=== PATIENT | female | born 1945 | race Caucasian/White ===

== ENCOUNTER 2023-11-14 03:25 | Inpatient (IN) | payer OTHER, SELFPAY ==
[2023-11-14] VITALS (14 sets, daily range): BP systolic 114–168; BP diastolic 62–109; PULSE 65–88; RESP 16–20; TEMP 36–37.6; O2SAT 88–100; BMI 31.3; BMI 31.5
--- NOTE | 2023-11-14 | ECG_ITS ---
Test Reason : ELEVATED TRIPONIN Blood Pressure : / mmHG Vent. Rate : 067 BPM Atrial Rate : 000 BPM P-R Int : 000 ms QRS Dur : 152 ms QT Int : 528 ms P-R-T Axes : 000 -31 149 degrees QTc Int : 557 ms V-paced rhythm Anterolateral T wave inversions Prolonged QTc Abnormal ECG When compared with ECG of 14-NOV-2023 03:43, Anterolateral T wave inversions Prolonged QTc Referred By: Oren Cormier Electronically Signed By:Bk Clarke
--- NOTE | ~2023-11-14 | XR_ITS ---
EXAMINATION: XR CHEST CLINICAL INFORMATION: Shortness of breath. Concern for pulmonary edema. COMPARISON: None available. TECHNIQUE: Frontal view of the chest was obtained. FINDINGS: The cardiomediastinal silhouette is within normal limits. Pacer leads are in place. There is bronchial thickening. There is no focal lung consolidation or pleural effusion. The bony structures and soft tissues are unremarkable. XR/XR chest 1V IMPRESSION: Bronchial thickening may be seen with bronchitis. There is no evidence for pulmonary edema. No focal consolidation or pleural effusion.
--- NOTE | 2023-11-14 03:34 | ECG_ITS ---
Test Reason : CP Blood Pressure : / mmHG Vent. Rate : 089 BPM Atrial Rate : 087 BPM P-R Int : 000 ms QRS Dur : 146 ms QT Int : 390 ms P-R-T Axes : 000 -36 134 degrees QTc Int : 474 ms V-paced rhythm with PVCs Unclear background rhythm Left axis deviation Left bundle branch block Abnormal ECG No previous ECGs available Referred By: Kari Sanabria Electronically Signed By:Bk Clarke
[2023-11-14 04:12] LABS: Venous Blood Gas Refer to POC result
[2023-11-14 04:13] LABS: Basophils Percent Auto 0.3 % (0-2); Eosinophils Percent Auto 0.3 % (0-4); Hematocrit 36.3 % (37.0-47.0); Hemoglobin 12.4 g/dl (12.0-16.0); Lymphocytes Absolute Auto 0.4 X10*3/uL (1.2-4.9); Lymphocytes Percent Auto 11.3 % (20-40); MANUAL DIFF FLAG NO; Mean Corpuscular HGB Conc 34.2 g/dl (31.0-35.0); Mean Corpuscular Hemoglobin 31.7 pg (27.0-33.0); Mean Corpuscular Volume 92.8 fL (80.0-98.0); Mean Platelet Volume 10.9 fL (9.4-12.3); Monocytes Absolute Auto 0.5 X10*3/uL (0.1-1.2); Monocytes Percent Auto 16.9 % (2-11); Neutrophils Absolute Auto 2.3 x10*3/uL (2.0-8.3); Neutrophils Percent Auto 71.2 % (45-73); Red Blood Count 3.91 X10*6/uL (4.20-5.50); Red Cell Distribution Width 14.7 % (11.0-16.0); White Blood Count 3.2 X10*3/uL (4.8-10.8)
[2023-11-14 04:15] LABS: VBG Base Excess 5.5 mmol/L; VBG HCO3 29 mmol/L (22-26); VBG pCO2 39 mmHg; VBG pH 7.47 (7.32-7.43); VBG pO2 66 mmHg
[2023-11-14 04:18] LABS: Platelet Count 39 X10*3/uL (160-400)
[2023-11-14 04:19] LABS: INTERNATIONAL NORM RATIO 1.6 (0.9-1.1); Prothrombin Time 19.1 SEC (11.1-13.3)
[2023-11-14 04:22] LABS: IDNOW Serial# 08D9AD1C; Influenza A Positive (Negative)
[2023-11-14 04:26] LABS: COVID-19 Test Negative (Negative); IDNOW Serial# 152EDE1D; Influenza B2 Negative (Negative)
[2023-11-14 04:29] LABS: Alanine Aminotransferase 18 U/L (0-31); Alkaline Phosphatase 73 U/L (39-117); Anion Gap 17 (12-20); Aspartate Amino Transferase 37 U/L (5-31); Bilirubin Total 1.4 mg/dL (0.0-1.0); Blood Urea Nitrogen 13 mg/dL (9-16); Carbon Dioxide 28 mmol/L (22-29); Chloride 95 mmol/L (96-108); Creatinine Clr Calc Pharmacy 40.4; Estimated Glomerular Filt Rate 45; Glucose Random 226 mg/dL (60-115); Potassium 3.6 mmol/L (3.3-5.1); Sodium 136 mmol/L (135-145); Total Protein 7.4 g/dL (6.5-8.0)
[2023-11-14 04:32] LABS: B Type Natriuretic Peptide 1448 pg/mL (<100); Troponin-I High Sensitivity 32.2 ng/L (<3.5-17.0)
--- NOTE | 2023-11-14 05:28 | PM.IMHP ---
History of Present Illness Date of Service: 11/14/23 Chief Complaint: Dyspnea This is a 78-year-old female with pertinent history of congestive heart failure, unspecified EF, hypothyroidism, essential hypertension, mood disorder, gastroesophageal reflux disease who presents to the emergency department for evaluation of dyspnea. Patient states that her symptoms started 1 day prior to presentation. Has been having dyspnea at rest. Admits orthopnea. Patient does have a history of CHF and states she is compliant with Lasix. Does have chills and dry cough. No fevers, chest discomfort, palpitations, abdominal pain, changes in urinary or bowel habits. No sick contacts. In the emergency department, patient tested positive for influenza A and BNP found to be elevated Review of Systems Constitutional: Constitutional: Reports lethargy and Reports poor appetite Cardiovascular: Cardiovascular: Reports dyspnea and Reports orthopnea Respiratory: Respiratory: Reports cough and Reports dyspnea Gastrointestinal: Gastrointestinal: Reports no additional gastrointestinal complaints Genitourinary: Genitourinary: Reports no additional female genitourinary complaints [facility] Medical History Hypothyroidism Gastroesophageal reflux disease Essential hypertension Mood disorder Congestive heart failure Pertinent family history: Not significant due to age Social History Smoked in Last 30 Days: No Use of substances other than those prescribed or required for medical reasons: No Advance Directives: No Advance Directives Information Provided: Yes Meds Allergies Allergy/AdvReac Type Severity Reaction Status Date / Time Unable to Assess Allergy Verified 11/14/23 03:34 Physical Exam Vital Signs and Narrative: Vital Signs: Last Vital Signs Temp 99.7 F 11/14/23 03:54 Pulse 88 11/14/23 03:54 Resp 20 11/14/23 03:54 BP 162/109 H 11/14/23 03:54 Pulse Ox 95 11/14/23 03:54 O2 Del Method Room Air 11/14/23 03:54 BMI result Body Mass Index 31.3 Elderly female lying in bed in mild distress Neck supple, + JVD Regular rate and rhythm, S1-S2 heard Bilateral crackles Abdomen soft nontender, no guarding, no rigidity Patient is awake, alert and oriented to self, place, time and person ; no focal motor deficit Psych: Normal mood Bilateral pedal edema Results Labs 11/14/23 04:04 11/14/23 04:04 Labs: Laboratory Results - last 24 hr 11/14/23 11/14/23 04:04 04:08 MCV 92.8 MCH 31.7 MCHC 34.2 RDW 14.7 Plt Count 39 L MPV 10.9 Immature Gran % (Auto) 0.0 Neut % (Auto) 71.2 Lymph % (Auto) 11.3 L [place] % (Auto) 16.9 H Eos % (Auto) 0.3 Baso % (Auto) 0.3 Lymph # (Auto) 0.4 L [place] # (Auto) 0.5 Eos # (Auto) 0.0 Baso # (Auto) 0.0 Abs Immat Gran (auto) 0.00 Absolute Neuts (auto) 2.3 Absolute Nucleated RBC 0.000 Nucleated RBC % (auto) 0.0 PT 19.1 H INR 1.6 H VBG pH 7.47 H VBG pCO2 39 VBG pO2 66 VBG HCO3 29 H VBG O2 Saturation 93.0 VBG Base Excess 5.5 Anion Gap 17 Estim Creat Clear Calc 40.4 Estimated GFR 45 Random Glucose 226 H Calcium 9.0 Total Bilirubin 1.4 H AST 37 H ALT 18 Alkaline Phosphatase 73 B-Natriuretic Peptide 1448 H Total Protein 7.4 Albumin 4.0 COVID-19 (YASMEEN) Negative COVID-19 Clin Com See Note Influenza Type A (FREDA) Positive A Influenza Type B (FREDA) Negative Influenza A & B Note See Note Assessment and Plan (1) Acute congestive heart failure: Status: Acute Plan This is a 78-year-old female with pertinent history of congestive heart failure, unspecified EF, hypothyroidism, essential hypertension, mood disorder, gastroesophageal reflux disease who presents to the emergency department for evaluation of dyspnea. #. Acute respiratory distress due to acute on chronic congestive heart failure in the setting of influenza a: Will admit patient and initiate IV diuresis. Strict I's and O's. Low-salt diet. Obtaining echocardiogram. Initiating Tamiflu, renally dosed #. Hyperglycemia: Initiating Accu-Cheks with sliding scale insulin. Obtaining A1c #. Essential hypertension: Continue home antihypertensives #. Mood disorder: Continue mood stabilizers #. Hypothyroidism: On Synthroid #. Elevated troponin, likely in the setting of increased amount: Trend #. Gastroesophageal reflux disease: On PPI Med rec pending DVT prophylaxis: Magdalenax Full code. Discussed with daughter at bedside Admit as inpatient and will require two night minimum hospital stay for close monitoring of hemodynamics, respiratory status, volume status with IV diuresis (as above), which is not possible in a lesser acute setting. Quality Stroke Does the patient have a stroke diagnosis?: No VTE Prior VTE?: No VTE Risk Level:: Medical - moderate - high VTE Device Contraindication: Treatment Not Indicated VTE Drug Contraindication: N/A - Med Ordered
--- NOTE | 2023-11-14 05:42 | ED_ITS ---
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 Majority of the history is provided by the daughter who is at bedside. Related Data Home Medications Medication Instructions Recorded Confirmed clonidine HCl 0.1 mg tablet 0.1 mg PO BID 11/14/23 doxazosin 4 mg tablet 4 mg PO DAILY 11/14/23 furosemide 20 mg tablet mg PO 11/14/23 levothyroxine 112 mcg tablet 112 mcg PO DAILY 11/14/23 metoprolol tartrate 100 mg tablet 100 mg PO BID 11/14/23 [id number]-tucegnqes-wwrbnvei 3.5 drp ophthalmic (eye) 11/14/23 mg/mL-10,000 unit/mL-0.1% eye drops olmesartan 40 mg tablet 40 mg PO DAILY 11/14/23 pantoprazole 20 mg tablet,delayed 20 mg PO DAILY 11/14/23 release trazodone 50 mg tablet 50 mg PO BEDTIME 11/14/23 11/14/23 Allergies Allergy/AdvReac Type Severity Reaction Status Date / Time amlodipine [From Norvasc] Allergy Swelling Verified 11/14/23 06:25 enoxaparin [From Lovenox] Allergy Rash Verified 11/14/23 06:25 lisinopril Allergy Rash Verified 11/14/23 06:25 Penicillins Allergy Rash Verified 11/14/23 06:25 albuterol AdvReac SVT Verified 11/14/23 06:31 Review of Systems 2 Review of Systems: Pertinent positives and negatives as stated in HPI PMFSH Past Medical History Source: nursing notes reviewed Medical History Hypothyroidism Gastroesophageal reflux disease Essential hypertension Mood disorder Congestive heart failure Social History Social History Smoked in Last 30 Days: No Use of substances other than those prescribed or required for medical reasons: No Advance Directives: No Advance Directives Information Provided: Yes Physical Exam 2 Vital Signs: Vital Signs: Last Vital Signs Temp 98.9 F 11/14/23 07:13 Pulse 73 11/14/23 07:13 Resp 16 11/14/23 07:13 BP 155/91 H 11/14/23 07:13 Pulse Ox 90 L 11/14/23 07:13 O2 Del Method Room Air 11/14/23 07:13 BMI result Body Mass Index 31.3 VITAL SIGNS: Reviewed. GENERAL: Well developed, well nourished, in no acute distress. HEAD: Normocephalic/atraumatic EYES: PERRLA, EOMI EARS: Ext canals without abnormality NOSE: Nares patent bilateral OROPHARYNX: no oral lesions noted, posterior pharynx clear NECK: Supple, no adenopathy LUNGS: Decreased breath sounds throughout, bibasilar rales, tachypnea is present. SpO2<90> CARDIOVASCULAR: Regular rate and rhythm without noted murmurs, no JVD but 1+ lower extremity edema ABDOMEN: Soft, non-tender, non-distended with bowel sounds. MUSCULOSKELETAL: No tenderness, deformities, or effusions noted on gross inspection. EXTREMITIES: No cyanosis, clubbing or edema. SKIN: Inspection of the skin reveals no rashes NEUROLOGIC: Alert and oriented x 3. Strength and sensation to light touch were grossly intact x 4. Medications Administered Discontinued Medications Generic Name Dose Route Start Last Admin Trade Name Freq PRN Reason Stop Dose Admin Enoxaparin Sodium 40 mg 11/14/23 05:30 11/14/23 06:18 Enoxaparin Sodium 40 Mg/0.4 Ml Syringe SUBCUT 40 mg Q24H VERNA Administration Furosemide 60 mg 11/14/23 04:48 11/14/23 06:18 Furosemide 100 Mg/10 Ml Vial IVPUSH 11/14/23 04:49 60 mg ONCE ONE Administration Protocol Oseltamivir Phosphate 75 mg 11/14/23 05:32 11/14/23 06:18 Oseltamivir Phosphate 75 Mg Capsule PO 11/14/23 05:33 75 mg ONCE ONE Administration Medical Decision Making Medical Decision Making MDM Narrative: 78-year-old female with history and clinical presentation, DDX: Acute on chronic heart failure, viral syndrome Records were requested from [facility]. I reviewed all investigations and there is a slight leukopenia without anemia and a stable thrombocytopenia (according to the daughter) and no left shift. Coagulation studies are elevated and this is likely secondary to daughter's reported liver disease. VBG does not represent a respiratory acidosis and there is no hypercapnia. Chemistry disease do not demonstrate an NYASIA and there is no electrolyte derangement however there is an elevated total bilirubin without abdominal discomfort and suspect that this is part of patient's chronic liver disease. Troponin is noted be elevated at 32.2 without complaints of chest pain or palpitations. In addition, BNP is noted to be elevated at 1448 and patient received 60 mg of Lasix. Viral testing is positive for influenza A. Chest x- ray is significant for bronchial thickening likely consistent with underlying diagnosis of influenza A. EKG demonstrates atrial fibrillation and left bundle- branch block, there is no comparison EKG but patient has no complaints of chest pain. I discussed case with inpatient hospitalist who accepts admission. Differential Diagnosis Differential Diagnoses: The differential diagnosis associated with the presentation includes Please see the discussion above Admission/Observation Consideration of admission/observation: Escalation of care including admission/observation considered Please see the discussion above Consult Healthcare Provider Management of the patient was discussed with: Hospitalist Please his custom Lab Data MDM Lab Attestation statement: I reviewed the patient's lab results. Please see the discussion above 11/14/23 04:04 11/14/23 04:04 Labs: Lab Results 11/14/23 11/14/23 Range/Units 04:04 04:08 WBC 3.2 L (4.8-10.8) X10*3/uL RBC 3.91 L (4.20-5.50) X10*6/uL Hgb 12.4 (12.0-16.0) g/dl Hct 36.3 L (37.0-47.0) % MCV 92.8 (80.0-98.0) fL MCH 31.7 (27.0-33.0) pg MCHC 34.2 (31.0-35.0) g/dl RDW 14.7 (11.0-16.0) % Plt Count 39 L (160-400) X10*3/uL MPV 10.9 (9.4-12.3) fL Immature Gran % (Auto) 0.0 (0.0-0.4) % Neut % (Auto) 71.2 (45-73) % Lymph % (Auto) 11.3 L (20-40) % [place] % (Auto) 16.9 H (2-11) % Eos % (Auto) 0.3 (0-4) % Baso % (Auto) 0.3 (0-2) % Lymph # (Auto) 0.4 L (1.2-4.9) X10*3/uL [place] # (Auto) 0.5 (0.1-1.2) X10*3/uL Eos # (Auto) 0.0 (0.0-0.4) X10*3/uL Baso # (Auto) 0.0 (0.0-0.2) X10*3/uL Abs Immat Gran (auto) 0.00 (0.00-0.03) X10*3/uL Absolute Neuts (auto) 2.3 (2.0-8.3) x10*3/uL Absolute Nucleated RBC 0.000 (0.0-0.012) X10*3/uL Nucleated RBC % (auto) 0.0 (0.0-0.2) /100WBC PT 19.1 H (11.1-13.3) SEC INR 1.6 H (0.9-1.1) VBG pH 7.47 H (7.32-7.43) VBG pCO2 39 mmHg VBG pO2 66 mmHg VBG HCO3 29 H (22-26) mmol/L VBG O2 Saturation 93.0 % VBG Base Excess 5.5 mmol/L Sodium 136 (135-145) mmol/L Potassium 3.6 (3.3-5.1) mmol/L Chloride 95 L (96-108) mmol/L Carbon Dioxide 28 (22-29) mmol/L Anion Gap 17 (12-20) BUN 13 (9-16) mg/dL Creatinine 1.17 (0.5-1.4) mg/dL Estim Creat Clear Calc 40.4 Estimated GFR 45 Random Glucose 226 H (60-115) mg/dL Estimat Average Glucose 131 mg/dL Hemoglobin A1c % 6.2 H (<6.0) % Calcium 9.0 (8.4-10.2) mg/dL Total Bilirubin 1.4 H (0.0-1.0) mg/dL AST 37 H (5-31) U/L ALT 18 (0-31) U/L Alkaline Phosphatase 73 (39-117) U/L Troponin I High Sens 32.2 H (<3.5-17.0) ng/L B-Natriuretic Peptide 1448 H (<100) pg/mL Total Protein 7.4 (6.5-8.0) g/dL Albumin 4.0 (3.5-5.0) g/dL COVID-19 (YASMEEN) Negative (Negative) COVID-19 Clin Com See Note Influenza Type A (FREDA) Positive A (Negative) Influenza Type B (FREDA) Negative (Negative) Influenza A & B Note See Note Independent Interpretation I performed an independent interpretation of an: EKG Interpretation: Atrial fibrillation, HR-89, LBBB, no STEMI Radiology Impression Discussion of test interpretation with radiology: I have reviewed the radiologist's reading. Radiologist Impression: Please see the discussion above Chronic Conditions Patient?s care impacted by: Hypertension and Other CHF, liver disease, thrombocytopenia Critical Care Time Critical Care Time Critical Care Time: Yes Total Critical Care Time: 60 Attestation: I personally attest to this time spent taking care of the patient. Discharge Plan Discharge Clinical Impression: Acute on chronic congestive heart failure, Viral syndrome, Influenza A, Thrombocytopenia Patient Disposition: Admitted As Inpatient
[2023-11-14 05:59] LABS: Estimated Average Glucose 131 mg/dL; Hemoglobin A1c % 6.2 % (<6.0)
[2023-11-14] MEDS: Furosemide 100 MG/10 ML VIAL 60 MG IVPUSH (06:18)
[2023-11-14] MEDS: Enoxaparin Sodium 40 MG/0.4 ML SYRINGE SUBCUT (06:18)
[2023-11-14] MEDS: Oseltamivir Phosphate 75 MG CAPSULE PO (06:18)
--- NOTE | 2023-11-14 07:00 | CA_ITS ---
Transthoracic Echocardiogram Patient (Last, First, Middle): Cary Mireles, Gender: Female Date of : 1945 Age: 78 Procedure Date: 11/14/2023 Procedure Type: Transthoracic Echocardiogram Location: [facility] [place] Height: 160.02 cm Weight: 79.83 kg BSA: 1.83 m2 Heart Rate: bpm BP: 155 / 91 mmHg [employer] Web Application Developer: Referring MD: Diana King MD Symptoms: CHF Study Quality: Adequate ECG Rhythm: Ventriculary paced rhythm Conclusions: - Normal left ventricular cavity size. There is normal left ventricular wall thickness. The left ventricular systolic function is moderately decreased. The visually estimated ejection fraction is between 30-35%. - There is paradoxical septal motion consistent with a right ventricular pacemaker. - There is normal right ventricular systolic function. There is a pacemaker wire seen in the right ventricle. RV is mild-to moderately dilated. - The left atrium is severely dilated. - There is severe calcification of the aortic valve. There is moderate aortic valve stenosis. The peak aortic velocity is 2.61 m/s. The mean gradient is 15 mmHg. The aortic valve area is 1.03 cm2. There is mild aortic valve regurgitation. SVI 35. - There is mild to moderate mitral valve regurgitation. - There is severe tricuspid valve regurgitation. The right ventricular systolic pressure is 48 mmHg. Moderately elevated right atrial pressure. Moderate pulmonary hypertension is present. - There is mild dilatation of the ascending aorta measuring 4.50 cm. Findings Left Ventricle Normal left ventricular cavity size. There is normal left ventricular wall thickness. The left ventricular systolic function is moderately decreased. The visually estimated ejection fraction is between 30-35%. There is moderate global hypokinesis. There is paradoxical septal motion consistent with a right ventricular pacemaker. Diastolic function is indeterminate on the basis of available data. Right Ventricle There is normal right ventricular systolic function. There is a pacemaker wire seen in the right ventricle. RV is [id number] dilated. Atria The left atrium is severely dilated. Aortic Valve There is severe calcification of the aortic valve. There is moderate aortic valve stenosis. The peak aortic velocity is 2.61 m/s. The mean gradient is 15 mmHg. The aortic valve area is 1.03 cm2. There is mild aortic valve regurgitation. SVI 35. Mitral Valve There is moderate mitral annular calcification. There is mild to moderate mitral valve regurgitation. There is no mitral valve stenosis. Pulmonic Valve The pulmonic valve is likely normal. Tricuspid Valve There is severe tricuspid valve regurgitation. The right ventricular systolic pressure is 48 mmHg. Moderately elevated right atrial pressure. Moderate pulmonary hypertension is present. Great Vessels There is mild dilatation of the ascending aorta measuring 4.50 cm. The visualized portions of the pulmonary artery and branches are normal. Venous The inferior vena cava is dilated and collapses less than 50% with inspiration. Pericardium/Pleural There is no evidence of pericardial effusion. Prior Study Comparison No prior study available for comparison. Measurements 2D Linear Measurements IVSd: 0.98 0.6-0.9/0.6-1.0 cm LVIDd: 5.26 3.9-5.3/4.2-5.9 cm LVIDd Index: 2.87 2.4-3.2/2.2-3.1 cm/m2 LVIDs: 3.97 2.0-3.6 cm LVPWd: 1.05 0.7-1.1 cm Ao Root: 3.30 2.1-3.5 cm LA Diam: 4.30 2.7-3.8/3.0-4.0 cm LAIDs Index: 2.35 1.5-2.3 cm/m2 LV Mass: 251.73 67-162/88-224 g LV Mass Index: 137.56 43-95/49-115 g/m2 LVOT Diam: 2.00 3.0+(-)1.3 cm 2D Systolic Function EF 4C: 33.50 >55% EF 2C: 32.90 >55% EF BiP: 35.70 >55% Mitral Valve MV VTI: 0.42 MV Pk Sajan: 1.42 MV Mn Sajan: 0.78 MV Pk Grad: 8.00 MV Mn Grad: 3.00 MV Pk E: 1.34 MV PK A: 0.68 MV Decel Time: 225.00 E/A: 2.00 E'Lateral: 9.79 E'Medial: 4.46 E/E' Med: 30.00 E/E' Lat: 13.70 PHT: 66.00 MVA PHT: 3.33 MVA Continuity: 1.26 Decel [place]: 5.97 Aortic Valve AoV Pk Sajan: 2.61 AoV Mn Sajan: 1.80 AoV VTI: 0.51 AoV Pk Grad: 27.00 Aov Mn Grad: 15.00 ROSE Cont.VTI: 1.03 LVOT LVOT Pk Sajan: 0.80 LVOT Mn Sajan: 0.56 LVOT VTI: 0.17 LVOT Pk Grad: 3.00 LVOT Mn Grad: 1.00 LVOT Diam: 2.00 LVOT Area: 3.14 Diastolic Function MV Pk E: 1.34 MV Pk A: 0.68 E/A: 2.00 E'Medial: 4.46 E/E' Med: 30.00 E' Laterial: 9.79 E/E' Lat: 13.70 Right Ventricle TAPSE (mm): 29.00 Tricuspid Valve TR Pk Sajan: 2.87 TR Pk Grad: 33.00 RA Press: 15.00 RVSP: 48.00 Great Vessels Aorta Ao Root-2D: 3.30 2.0-3.7 cm Ao Asc: 4.50 2.1-3.4 cm Pulmonary Valve PV Pk Sajan: 1.01 Peak PV Grad: 4.00 Updated in Other Vendor System with Status of Final Bk Clarke MD electronically signed on 11/14/2023 11:57:13 AM with status of Final
[2023-11-14 07:27] LABS: Glucose, Whole Blood 189 mg/dL (60-115)
--- NOTE | 2023-11-14 07:44 | PHA.MEDREC ---
Pharmacy Consult ? Medication Reconciliation Pharmacy has completed the medication reconciliation. Confirmed medications with patient, claim history, daughter, and list brought from home
[2023-11-14] MEDS: levalbuterol HCL 1.25 MG/3 ML VIAL.NEB INHALE ×5 (08:21→23:50)
[2023-11-14] MEDS: 0.9 % Sodium Chloride Flush 3 ML SYRINGE IVFLUSH ×3 (08:44→20:33)
[2023-11-14] MEDS: Acetaminophen 325 MG TABLET 650 MG PO (08:47)
[2023-11-14] MEDS: ondansetron HCL 4 MG/2 ML VIAL IVPUSH ×2 (08:47→19:31)
--- NOTE | 2023-11-14 09:02 | PC.NURSE ---
pt resting in bed NAD. on 2L NC. daughter at bedside. pt and family aware of plan to be admitted to the hospital. pt vomited during breakfast so she did not continue eating, ate approx 25% of meal, reports the phlegm in her throat made her throw up. medicate with zofran for the time being. pt refused her AM insulin as she did not eat her breakfast and did not want to go to low.
--- NOTE | 2023-11-14 09:08 | PC.NURSE ---
ECHO at bedside
[2023-11-14 09:46] LABS: Troponin-I High Sensitivity 355.3 ng/L (<3.5-17.0)
[2023-11-14 11:32] LABS: Glucose, Whole Blood 175 mg/dL (60-115)
--- NOTE | 2023-11-14 12:04 | PM.CNCAR ---
History of Present Illness History of Present Illness Date of Service: 11/14/23 Requesting physician: Oren Cormier Chief complaint: Dyspnea, Flu+, elevated troponin Narrative: 78-year-old female who has known history of cardiomyopathy as per daughter, previous pacemaker and recent admission to [facility] for congestive heart failure. She is now presenting with cough and shortness of breath. She is influenza positive. She has mildly elevated troponin levels. Clinically she looks congested and has volume overload. Echocardiography was performed which is showing EF of 30 35% with moderate aortic valve stenosis, severe tricuspid valve regurgitation and [id number] mitral valve regurgitation. Patient is denying any chest discomfort but did have some pressure-like feeling before she came to the hospital. She does not have any history of coronary disease as per the daughter. We do not have any records on her and we are requesting some records. She has been started on IV diuretics at this point. [facility] Past Medical History Medical History Hypothyroidism Gastroesophageal reflux disease Essential hypertension Mood disorder Congestive heart failure Social History Social History Patient Tobacco Use Status: Never used Tobacco Smoked in Last 30 Days: No Use of substances other than those prescribed or required for medical reasons: No Advance Directives: No Advance Directives Information Provided: Yes Nutrition Risks: No Nutritional Risk Meds Allergies Allergy/AdvReac Type Severity Reaction Status Date / Time amlodipine [From Norvasc] Allergy Swelling Verified 11/14/23 06:25 enoxaparin [From Lovenox] Allergy Rash Verified 11/14/23 06:25 lisinopril Allergy Rash Verified 11/14/23 06:25 Penicillins Allergy Rash Verified 11/14/23 06:25 albuterol AdvReac SVT Verified 11/14/23 06:31 Active Medications: Current Medications Acetaminophen (Acetaminophen 325 Mg Tablet) 650 mg PO Q6H PRN PRN Reason: Pain, Mild (Pain Scale 1-3) Last Admin: 11/14/23 08:47 Dose: 650 mg Aspirin (Aspirin 81 Mg Tab.Chew) 81 mg PO DAILY VERNA Atorvastatin Calcium (Atorvastatin Calcium 80 Mg Tablet) 80 mg PO DAILY [facility] Dextrose (Dextrose 50 % 25 Gm/50 Ml Syringe) 25 gm IVPUSH Q15M PRN; Protocol PRN Reason: per Hypoglycemia Standing Ord. Furosemide (Furosemide 40 Mg/4 Ml Vial) 40 mg IVPUSH DAILY [facility]; Protocol Glucose (Glucose Gel 15 Gm Gel..Gram.) 15 gm PO Q15M PRN; Protocol PRN Reason: per Hypoglycemia Standing Ord. Insulin Human Lispro (Insulin Lispro 100 Unit/Ml 3 Ml Vial) 0 unit SUBCUT QIDACHS [facility]; Protocol Last Admin: 11/14/23 08:43 Dose: Not Given Levalbuterol HCl (Levalbuterol Hcl 1.25 Mg/3 Ml Vial.Neb) 1.25 mg INHALE RQ4H [facility] Last Admin: 11/14/23 11:15 Dose: 1.25 mg Levalbuterol HCl (Levalbuterol Hcl 1.25 Mg/3 Ml Vial.Neb) 1.25 mg INHALE Q4H PRN PRN Reason: Wheezing Melatonin (Melatonin 3 Mg Tablet) 6 mg PO BEDTIME PRN PRN Reason: Insomnia Ondansetron HCl (Ondansetron Hcl 4 Mg/2 Ml Vial) 4 mg IVPUSH Q8H PRN PRN Reason: Nausea and Vomiting Last Admin: 11/14/23 08:47 Dose: 4 mg Oseltamivir Phosphate (Oseltamivir Phosphate 30 Mg Capsule) 30 mg PO Q12H [facility] Stop: 11/19/23 05:01 Sodium Chloride (0.9 % Sodium Chloride Flush 3 Ml Syringe) [facility] Last Admin: 11/14/23 08:44 Dose: 3 ml Home Medications Medication Instructions Recorded Confirmed Last Taken Type clonidine HCl 0.1 mg tablet 0.1 mg PO BID 11/14/23 11/14/23 11/13/23 History doxazosin 4 mg tablet 4 mg PO DAILY 11/14/23 11/14/23 11/13/23 History furosemide 20 mg tablet 20 mg PO BID 11/14/23 11/14/23 11/13/23 History levothyroxine 112 mcg tablet 112 mcg PO DAILY 11/14/23 11/14/23 11/13/23 History metoprolol tartrate 100 mg tablet 100 mg PO BID 11/14/23 11/14/23 11/13/23 History multivitamin 1 tab PO DAILY 11/14/23 11/14/23 11/13/23 History [id number]-[id number]-bvyyxcuo 3.5 1 drp ophthalmic (eye) DAILY 11/14/23 11/14/23 11/13/23 History mg/mL-10,000 unit/mL-0.1% eye drops olmesartan 40 mg tablet 40 mg PO DAILY 11/14/23 11/14/23 11/13/23 History pantoprazole 20 mg tablet,delayed 20 mg PO DAILY 11/14/23 11/14/23 11/13/23 History release Physical Exam Vital Signs: Vital Signs: Last Vital Signs Temp 98.9 F 11/14/23 07:13 Pulse 65 11/14/23 11:24 Resp 17 11/14/23 11:24 BP 116/69 11/14/23 11:24 Pulse Ox 90 L 11/14/23 07:13 O2 Del Method Room Air 11/14/23 11:24 BMI result Body Mass Index 31.5 GENERAL APPEARANCE: in no acute distress, pleasant. On supplemental oxygen NECK: no carotid bruit, ++ jugular venous distention. SKIN: no suspicious lesions, warm and dry. HEART: Systolic murmur aortic area, holosystolic murmur left sternal border, regular rate and rhythm. LUNGS: Bilateral expiratory wheezes. ABDOMEN: soft, nontender. EXTREMITIES: no edema. PERIPHERAL PULSES: equal. NEUROLOGIC: No gross deficits, AAO X 3 Objective Labs and Meds 11/14/23 12:05 11/14/23 04:04 Lab results: Laboratory Results - last 24 hr 11/14/23 11/14/23 11/14/23 04:04 04:08 07:10 WBC 3.2 L RBC 3.91 L Hgb 12.4 Hct 36.3 L MCV 92.8 MCH 31.7 MCHC 34.2 RDW 14.7 Plt Count 39 L MPV 10.9 Immature Gran % (Auto) 0.0 Neut % (Auto) 71.2 Lymph % (Auto) 11.3 L Loving % (Auto) 16.9 H Eos % (Auto) 0.3 Baso % (Auto) 0.3 Lymph # (Auto) 0.4 L Loving # (Auto) 0.5 Eos # (Auto) 0.0 Baso # (Auto) 0.0 Abs Immat Gran (auto) 0.00 Absolute Neuts (auto) 2.3 Absolute Nucleated RBC 0.000 Nucleated RBC % (auto) 0.0 PT 19.1 H INR 1.6 H VBG pH 7.47 H VBG pCO2 39 VBG pO2 66 VBG HCO3 29 H VBG O2 Saturation 93.0 VBG Base Excess 5.5 Sodium 136 Potassium 3.6 Chloride 95 L Carbon Dioxide 28 Anion Gap 17 BUN 13 Creatinine 1.17 Estim Creat Clear Calc 40.4 Estimated GFR 45 POC Glucose 189 H Random Glucose 226 H Estimat Average Glucose 131 Hemoglobin A1c % 6.2 H Calcium 9.0 Total Bilirubin 1.4 H AST 37 H ALT 18 Alkaline Phosphatase 73 Troponin I High Sens 32.2 H B-Natriuretic Peptide 1448 H Total Protein 7.4 Albumin 4.0 COVID-19 (YASMEEN) Negative COVID-19 [employer] See Note Influenza Type A (FREDA) Positive A Influenza Type B (FREDA) Negative Influenza A & B Note See Note 11/14/23 11/14/23 09:11 11:27 WBC RBC Hgb Hct MCV MCH MCHC RDW Plt Count MPV Immature Gran % (Auto) Neut % (Auto) Lymph % (Auto) Loving % (Auto) Eos % (Auto) Baso % (Auto) Lymph # (Auto) Loving # (Auto) Eos # (Auto) Baso # (Auto) Abs Immat Gran (auto) Absolute Neuts (auto) Absolute Nucleated RBC Nucleated RBC % (auto) PT INR VBG pH VBG pCO2 VBG pO2 VBG HCO3 VBG O2 Saturation VBG Base Excess Sodium Potassium Chloride Carbon Dioxide Anion Gap BUN Creatinine Estim Creat Clear Calc Estimated GFR POC Glucose 175 H Random Glucose Estimat Average Glucose Hemoglobin A1c % Calcium Total Bilirubin AST ALT Alkaline Phosphatase Troponin I High Sens 355.3 H* D B-Natriuretic Peptide Total Protein Albumin COVID-19 (YASMEEN) COVID-19 Clin Com Influenza Type A (FREDA) Influenza Type B (FREDA) Influenza A & B Note Imaging Radiologist's impression: Impressions Chest X-Ray 11/14/23 05:11 IMPRESSION: Bronchial thickening may be seen with bronchitis. There is no evidence for pulmonary edema. No focal consolidation or pleural effusion. 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 She is influenza positive. Clinically she also appears to be in congestive heart failure. She recently was at [facility] for congestive heart failure. Treat influenza with Tamiflu. Agree with 40 mg IV Lasix. Would favor changing her to Toprol-XL 100 mg once a day. Try not to hold clonidine as it may cause withdrawal (she has not on a high dose but still there is a risk). Type 2 PR due to CHF and influenza. Patient has chronic thrombocytopenia due to cirrhosis of liver and is high risk for bleeding. She does not need anticoagulation currently. As she improves clinically she can be discharged back home and can follow-up with Dr. Fontaine at [facility] who is her tea taster. Thank you for allowing me to participate in the care of your patient. Please feel free to contact me if you have any questions. Procedures Date of Service Date of Service: 11/14/23
[2023-11-14 12:14] LABS: Hematocrit 32.4 % (37.0-47.0); Hemoglobin 10.9 g/dl (12.0-16.0); Mean Corpuscular HGB Conc 33.6 g/dl (31.0-35.0); Mean Corpuscular Hemoglobin 31.1 pg (27.0-33.0); Mean Corpuscular Volume 92.6 fL (80.0-98.0); Mean Platelet Volume 11.3 fL (9.4-12.3); Red Cell Distribution Width 14.6 % (11.0-16.0)
[2023-11-14 12:18] LABS: Platelet Count 34 X10*3/uL (160-400); White Blood Count 2.3 X10*3/uL (4.8-10.8)
[2023-11-14 12:26] LABS: INTERNATIONAL NORM RATIO 1.7 (0.9-1.1); Prothrombin Time 20.1 SEC (11.1-13.3)
[2023-11-14 12:29] LABS: PTT Heparin Drip 35.8 SEC (53-77.9)
[2023-11-14 12:56] LABS: Troponin-I High Sensitivity 713.3 ng/L (<3.5-17.0)
--- NOTE | 2023-11-14 13:10 | PC.NURSE ---
per pt family, pt not to be on any thinning agents as she has a platelet disorder. MD Cormier made aware. plan to hold on heparin and continue to monitor. hold aspirin at this time.
--- NOTE | 2023-11-14 13:26 | PC.NURSE ---
attempted to medicate pt with lunch time insulin, daughter at bedside questioned it, reported why are you giving her that? shes not a diabetic, her blood sugar just goes high sometimes . attempted to educate family, pt and daughter both agreed to not take insulin at this time. also attempted to give atorvastatin, family again questioned this med administration, explained cardiac chagnes to family, they want to contact pts own psychologist developmental before this RN gives the atorvastatin. will hold at this time.
[2023-11-14 16:23] LABS: Glucose, Whole Blood 187 mg/dL (60-115)
--- NOTE | 2023-11-14 16:49 | PM.EVENT ---
Event Note Date of Service: 11/14/23 Event Note: Admitted this morning with influenz and sob, and rizing troponin I but denies chest pain. Elevaed trop raised concern of of NSTEMI, unfortunately not able to give heparin d/t low plat and additionally patient doesn't want the heparin due chronic low platlets and increased risk of bleeding will treat underlying flu, IV Lasix for possible heart failure and cardiology input noted Time Spent With Patient Time: Total time managing care of this patient today ____ minutes.
[2023-11-14 18:13] LABS: Anion Gap 15 (12-20); Blood Urea Nitrogen 13 mg/dL (9-16); Calcium 9.1 mg/dL (8.4-10.2); Carbon Dioxide 34 mmol/L (22-29); Chloride 96 mmol/L (96-108); Creatinine Clr Calc Pharmacy 41.9; Estimated Glomerular Filt Rate 47; Glucose Random 187 mg/dL (60-115); Magnesium 1.9 mg/dL (1.6-2.6); Potassium 3.8 mmol/L (3.3-5.1); Sodium 141 mmol/L (135-145)
[2023-11-14 18:21] LABS: Troponin-I High Sensitivity 611.8 ng/L (<3.5-17.0)
[2023-11-14] MEDS: Oseltamivir Phosphate 30 MG CAPSULE PO (18:38)
[2023-11-14 20:07] LABS: Glucose, Whole Blood 209 mg/dL (60-115)
[2023-11-14] MEDS: Metoprolol Tartrate 25 MG TABLET PO (20:33)
[2023-11-15] VITALS (9 sets, daily range): BP systolic 128–131; BP diastolic 66–77; PULSE 46–92; RESP 18–20; TEMP 36.4–37.3; O2SAT 91–96
[2023-11-15] MEDS: Oseltamivir Phosphate 30 MG CAPSULE PO ×2 (06:00→16:48)
[2023-11-15 06:55] LABS: Glucose, Whole Blood 128 mg/dL (60-115)
[2023-11-15 07:27] LABS: Hematocrit 32.5 % (37.0-47.0); Hemoglobin 10.9 g/dl (12.0-16.0); Mean Corpuscular HGB Conc 33.5 g/dl (31.0-35.0); Mean Corpuscular Hemoglobin 31.1 pg (27.0-33.0); Mean Corpuscular Volume 92.6 fL (80.0-98.0); Mean Platelet Volume 11.7 fL (9.4-12.3); Red Blood Count 3.51 X10*6/uL (4.20-5.50); Red Cell Distribution Width 14.6 % (11.0-16.0); White Blood Count 2.8 X10*3/uL (4.8-10.8)
[2023-11-15 07:30] LABS: Platelet Count 37 X10*3/uL (160-400)
[2023-11-15 07:33] LABS: INTERNATIONAL NORM RATIO 1.6 (0.9-1.1); Prothrombin Time 19.1 SEC (11.1-13.3)
[2023-11-15 07:44] LABS: Anion Gap 12 (12-20); Blood Urea Nitrogen 12 mg/dL (9-16); Calcium 8.5 mg/dL (8.4-10.2); Carbon Dioxide 32 mmol/L (22-29); Chloride 97 mmol/L (96-108); Creatinine Clr Calc Pharmacy 44.6; Estimated Glomerular Filt Rate 50; Glucose Random 125 mg/dL (60-115); Potassium 3.1 mmol/L (3.3-5.1); Sodium 138 mmol/L (135-145)
[2023-11-15] MEDS: levalbuterol HCL 1.25 MG/3 ML VIAL.NEB INHALE ×4 (08:01→19:06)
[2023-11-15] MEDS: Potassium Chloride Packet 20 MEQ PACKET 40 MEQ PO (09:27)
[2023-11-15] MEDS: Metoprolol Tartrate 25 MG TABLET PO (09:27)
[2023-11-15] MEDS: Furosemide 40 MG/4 ML VIAL IVPUSH (09:27)
[2023-11-15] MEDS: 0.9 % Sodium Chloride Flush 3 ML SYRINGE IVFLUSH ×2 (09:27→16:48)
--- NOTE | 2023-11-15 10:41 | MHC.CM.PN ---
IMM in [place] with major case detective 11/15/23, pt lives alone, and has family with her all the time, her daughter is HCP, Samantha, copy requested. Her grand dtr is also her QUALITY ASSOCIATE. She has a nurse that visits her 2 times a week from [facility]. She has medical equipment at home of: cane, walker, wheelchair, commode, shower bench. Family will transport home upon DC. DC plan is home, resume services. CM to follow and assist as needed with DC.
[2023-11-15 10:54] LABS: Glucose, Whole Blood 202 mg/dL (60-115)
--- NOTE | 2023-11-15 12:47 | P.DS_ITS ---
DS: Providers Provider Date of Service: 11/15/23 Date of admission: 11/14/23 05:27 Primary care physician: Mariaelena Garza MD Consults: 11/14/23 11:42 Consult to Cardiology Routine Consulting Provider: [facility] – [place] Cardiovascular Services Reason for consultation: NSTEMI Has provider been notified: Yes DS: Diagnosis Discharge Diagnosis (1) Influenza A: Status: Acute (2) Thrombocytopenia: Status: Inactive (3) Acute on chronic congestive heart failure: Status: Resolved DS: Summary Hospital Course Hospital Course: admission hpi Chief Complaint: Dyspnea This is a 78-year-old female with pertinent history of congestive heart failure, unspecified EF, hypothyroidism, essential hypertension, mood disorder, gastroe sophageal reflux disease who presents to the emergency department for evaluation of dyspnea. Patient states that her symptoms started 1 day prior to presentation. Has been having dyspnea at rest. Admits orthopnea. Patient does have a history of CHF and states she is compliant with Lasix. Does have chills and dry cough. No fevers, chest discomfort, palpitations, abdominal pain, changes in urinary or bowel habits. No sick contacts. In the emergency department, patient tested positive for influenza A and BNP found to be elevated Hospital course: The patient presented with dyspnea and found to have influenza, elevated BNP with concern for heart failure, troponin went from 32 to 355 to 713 to 618. She has not been having any chest pain and has been hemodynamically stable. Anticoagulation was considered but ultimately not done because low platlets and patient's objection because of chronic thrombocytopenia and and liver disease. She was evaluated by cardiology with no further recommendation for conservative manaement as well, patient further didn't want ASA or Lipitor due to liver disease. Influenza was treated with Tamifly and heart failure treated with IV Lasix that is been switched to oral Lasix at prior dose; Echo showed EF of 30% Time Attestation Discharge coordination time: Greater than 30 minutes Quality: Safe Use of Opioids Does Pt have an Active Cancer Diagnosis on the Problem List?: No Quality: Stroke Does the patient have a stroke diagnosis?: No Physical Exam Vital Signs: Vital Signs: Last Vital Signs Temp 99.0 F 11/15/23 10:55 Pulse 88 11/15/23 11:30 Resp 18 11/15/23 11:08 BP 129/74 11/15/23 10:55 Pulse Ox 94 11/15/23 10:55 O2 Del Method Room Air 11/15/23 10:55 BMI result Body Mass Index 31.5 Const: Other: General: AO X 3, no acute distress Resp: CTA bilateral CVS: S1,S2,RRR GI: +BS, NT, no distention Skin: No rash Neuro: motor grossly intact Psych: appropriate affect DS: Data Data Completed and Pending Labs on day of discharge: Laboratory Results - last 24 hr 11/14/23 11/14/23 11/14/23 12:05 16:19 17:47 WBC RBC Hgb Hct MCV MCH MCHC RDW Plt Count MPV Absolute Nucleated RBC Nucleated RBC % (auto) Smear Path Review SEE NOTE PT INR Sodium 141 Potassium 3.8 Chloride 96 Carbon Dioxide 34 H Anion Gap 15 BUN 13 Creatinine 1.13 Estim Creat Clear Calc 41.9 Estimated GFR 47 POC Glucose 187 H Random Glucose 187 H Calcium 9.1 Magnesium 1.9 Troponin I High Sens 713.3 H* D 611.8 H* 11/14/23 11/15/23 11/15/23 20:03 06:51 07:09 WBC 2.8 L RBC 3.51 L Hgb 10.9 L Hct 32.5 L MCV 92.6 MCH 31.1 MCHC 33.5 RDW 14.6 Plt Count 37 L MPV 11.7 Absolute Nucleated RBC 0.000 Nucleated RBC % (auto) 0.0 Smear Path Review PT 19.1 H INR 1.6 H Sodium 138 Potassium 3.1 L Chloride 97 Carbon Dioxide 32 H Anion Gap 12 BUN 12 Creatinine 1.06 Estim Creat Clear Calc 44.6 Estimated GFR 50 POC Glucose 209 H 128 H Random Glucose 125 H Calcium 8.5 D Magnesium Troponin I High Sens 11/15/23 10:48 WBC RBC Hgb Hct MCV MCH MCHC RDW Plt Count MPV Absolute Nucleated RBC Nucleated RBC % (auto) Smear Path Review PT INR Sodium Potassium Chloride Carbon Dioxide Anion Gap BUN Creatinine Estim Creat Clear Calc Estimated GFR POC Glucose 202 H Random Glucose Calcium Magnesium Troponin I High Sens Discharge Plan Discharge Anticipated Discharge Date/Time: 11/15/23 12:45 Patient Disposition: Home Health Service Discharge Diagnosis: Influenza, acute on chronic congestive heart failure Referrals: Mariaelena Garza MD [Primary Care Provider] - 1 Week Discharge Medications: New oseltamivir 30 mg Capsule 30 mg PO Q12H Qty: 7 0RF Continued clonidine HCl 0.1 mg tablet 0.1 mg PO BID metoprolol tartrate 100 mg tablet 100 mg PO BID pantoprazole 20 mg tablet,delayed release (DR/EC) 20 mg PO DAILY neomycin-polymyxin B-dexameth 3.5mg/mL-10,000 unit/mL-0.1 % drops,suspension 1 drp ophthalmic (eye) DAILY doxazosin 4 mg tablet 4 mg PO DAILY furosemide 20 mg tablet 20 mg PO BID levothyroxine 112 mcg tablet 112 mcg PO DAILY olmesartan 40 mg tablet 40 mg PO DAILY multivitamin Tablet 1 tab PO DAILY Discharge Orders: Discharge Order (Routine); Ordered 11/15/23 Ordered By: Oren Cormier Diet: Advance to usual diet Activity on Discharge: As tolerated Stand Alone Forms: Patient Portal Discharge page Print Language: Kosovan Other Ambulatory Orders: Basic Metabolic Panel Fasting (Routine) Timeframe: 20231117 Facility: [facility] - Location: Laboratory Ordered By: Oren Cormier Care Plan Goals: recovery from flu and heart failure Health Concerns: heart failure flu Plan of Treatment: Take Tamiflu as recommended Take Lasix as recommended Follow up with your Doctor and heart doctor in a week get lab done in 2 days Assessment: see above Discharge Date/Time: 11/15/23 19:43
[2023-11-15 16:22] LABS: Glucose, Whole Blood 211 mg/dL (60-115)
--- NOTE | 2023-11-15 17:59 | HO.PM.IMPN ---
Subjective Subjective Date of Service: 11/15/23 Physical Exam Vital Signs: Vital Signs: Last Vital Signs Temp 99.2 F 11/15/23 15:34 Pulse 83 11/15/23 15:34 Resp 18 11/15/23 15:34 BP 131/66 11/15/23 15:34 Pulse Ox 95 11/15/23 15:34 O2 Del Method Room Air 11/15/23 15:34 BMI result Body Mass Index 31.5 Objective Data Active Medications Acetaminophen (Acetaminophen 325 Mg Tablet) 650 mg PO Q6H PRN PRN Reason: Pain, Mild (Pain Scale 1-3) Last Admin: 11/14/23 08:47 Dose: 650 mg Documented By: GOOD Dextrose (Dextrose 50 % 25 Gm/50 Ml Syringe) 25 gm IVPUSH Q15M PRN; Protocol PRN Reason: per Hypoglycemia Standing Ord. Furosemide (Furosemide 40 Mg/4 Ml Vial) 40 mg IVPUSH DAILY [facility]; Protocol Last Admin: 11/15/23 09:27 Dose: 40 mg Documented By: BEVERLEY Glucose (Glucose Gel 15 Gm Gel..Gram.) 15 gm PO Q15M PRN; Protocol PRN Reason: per Hypoglycemia Standing Ord. Insulin Human Lispro (Insulin Lispro 100 Unit/Ml 3 Ml Vial) 0 unit SUBCUT QIDACHS [facility]; Protocol Last Admin: 11/15/23 16:24 Dose: Not Given Documented By: KIMBERLY Non-Admin Reason: Patient Refused Levalbuterol HCl (Levalbuterol Hcl 1.25 Mg/3 Ml Vial.Neb) 1.25 mg INHALE RQ4H [facility] Last Admin: 11/15/23 15:31 Dose: 1.25 mg Documented By: SAQIB Levalbuterol HCl (Levalbuterol Hcl 1.25 Mg/3 Ml Vial.Neb) 1.25 mg INHALE Q4H PRN PRN Reason: Wheezing Melatonin (Melatonin 3 Mg Tablet) 6 mg PO BEDTIME PRN PRN Reason: Insomnia Metoprolol Tartrate (Metoprolol Tartrate 25 Mg Tablet) 25 mg PO BID [facility]; Protocol Last Admin: 11/15/23 09:27 Dose: 25 mg Documented By: BEVERLEY Ondansetron HCl (Ondansetron Hcl 4 Mg/2 Ml Vial) 4 mg IVPUSH Q8H PRN PRN Reason: Nausea and Vomiting Last Admin: 11/14/23 19:31 Dose: 4 mg Documented By: DOBROB Oseltamivir Phosphate (Oseltamivir Phosphate 30 Mg Capsule) 30 mg PO Q12H [facility] Stop: 11/19/23 05:01 Last Admin: 11/15/23 16:48 Dose: 30 mg Documented By: KIMBERLY Sodium Chloride (0.9 % Sodium Chloride Flush 3 Ml Syringe) 3 ml IVFLUSH QSHIFT [facility] Last Admin: 11/15/23 16:48 Dose: 3 ml Documented By: KIMBERLY Labs 11/15/23 07:09 11/15/23 07:09 Labs: Laboratory Results - last 24 hr 11/14/23 11/14/23 11/14/23 12:05 17:47 20:03 MCV MCH MCHC RDW Plt Count MPV Absolute Nucleated RBC Nucleated RBC % (auto) Smear Path Review SEE NOTE PT INR Anion Gap 15 Estim Creat Clear Calc 41.9 Estimated GFR 47 POC Glucose 209 H Random Glucose 187 H Calcium 9.1 Magnesium 1.9 Troponin I High Sens 611.8 H* 11/15/23 11/15/23 11/15/23 06:51 07:09 10:48 MCV 92.6 MCH 31.1 MCHC 33.5 RDW 14.6 Plt Count 37 L MPV 11.7 Absolute Nucleated RBC 0.000 Nucleated RBC % (auto) 0.0 Smear Path Review PT 19.1 H INR 1.6 H Anion Gap 12 Estim Creat Clear Calc 44.6 Estimated GFR 50 POC Glucose 128 H 202 H Random Glucose 125 H Calcium 8.5 D Magnesium Troponin I High Sens 11/15/23 16:15 MCV MCH MCHC RDW Plt Count MPV Absolute Nucleated RBC Nucleated RBC % (auto) Smear Path Review PT INR Anion Gap Estim Creat Clear Calc Estimated GFR POC Glucose 211 H Random Glucose Calcium Magnesium Troponin I High Sens Assessment and Plan Plan This is a 78-year-old female with pertinent history of congestive heart failure, unspecified EF, hypothyroidism, essential hypertension, mood disorder, gastroesophageal reflux disease who presents to the emergency department for evaluation of dyspnea. #. Acute respiratory distress due to acute on chronic congestive heart failure in the setting of influenza a: Will admit patient and initiate IV diuresis. Strict I's and O's. Low-salt diet. Obtaining echocardiogram. Initiating Tamiflu, renally dosed #. Hyperglycemia: Initiating Accu-Cheks with sliding scale insulin. Obtaining A1c #. Essential hypertension: Continue home antihypertensives #. Mood disorder: Continue mood stabilizers #. Hypothyroidism: On Synthroid #. Elevated troponin, likely in the setting of increased amount: Trend #. Gastroesophageal reflux disease: On PPI Med rec pending DVT prophylaxis: Lovenox Full code. Discussed with daughter at bedside Admit as inpatient and will require two night minimum hospital stay for close monitoring of hemodynamics, respiratory status, volume status with IV diuresis (as above), which is not possible in a lesser acute setting. Quality Stroke Does the patient have a stroke diagnosis?: No VTE Prior VTE?: No VTE Risk Level:: Medical - moderate - high VTE Device Contraindication: Treatment Not Indicated VTE Drug Contraindication: N/A - Med Ordered
== END 2023-11-15 19:43 | disposition home health service (06) | DRG 282 ==
LOC: HO.ED 04:30 → HO.EDOVER 05:49 → HO.IMC 14:58
PROVIDERS: Admitting Provider Student in an Organized Health Care Education/Training Program; Emergency Provider Student in an Organized Health Care Education/Training Program; PCP Internal Medicine; Visit Provider Internal Medicine
DX: I11.0 Hypertensive heart disease with heart failure (principal); I21.A1 Myocardial infarction type 2; K74.60 Unspecified cirrhosis of liver; D69.59 Other secondary thrombocytopenia; R06.03 Acute respiratory distress; I50.9 Heart failure, unspecified; J10.1 Influenza due to other identified influenza virus with other respiratory manifestations; E03.9 Hypothyroidism, unspecified; F39 Unspecified mood [affective] disorder; K21.9 Gastro-esophageal reflux disease without esophagitis; I08.3 Combined rheumatic disorders of mitral, aortic and tricuspid valves; I42.9 Cardiomyopathy, unspecified; Z20.822 Contact with and (suspected) exposure to COVID-19; Z88.0 Allergy status to penicillin; Z79.890 Hormone replacement therapy; Z79.899 Other long term (current) drug therapy
CPT/HCPCS: 36415; 71045; 80048; 80053; 82803; 82947; 83036; 83735; 83880; 84484; 85025; 85027; 85610; 85730; 87502; 87635; 93005; 93306; 94640; 99285; J1650; J1940; J2405; Q9957

== ENCOUNTER 2023-11-14 05:27 | Outpatient (BNV) | payer OTHER, SELFPAY | END 2023-11-14 07:00 | PROVIDERS: Admitting Provider Student in an Organized Health Care Education/Training Program; Emergency Provider Student in an Organized Health Care Education/Training Program; PCP Internal Medicine; Visit Provider Internal Medicine Cardiovascular Disease | DX: I45.81 Long QT syndrome (principal); R79.89 Other specified abnormal findings of blood chemistry; R07.9 Chest pain, unspecified; I44.4 Left anterior fascicular block; I36.1 Nonrheumatic tricuspid (valve) insufficiency | CPT/HCPCS: 93010; 93306 ==

== ENCOUNTER → 2023-11-14 05:27 | Outpatient (BNV) | payer OTHER, SELFPAY | PROVIDERS: Admitting Provider Student in an Organized Health Care Education/Training Program; Emergency Provider Student in an Organized Health Care Education/Training Program; PCP Internal Medicine; Visit Provider Internal Medicine Cardiovascular Disease | DX: I50.23 Acute on chronic systolic (congestive) heart failure (principal); D69.6 Thrombocytopenia, unspecified; J10.1 Influenza due to other identified influenza virus with other respiratory manifestations | CPT/HCPCS: 99222 ==

== ENCOUNTER → 2023-11-14 05:27 | Outpatient (BNV) | payer OTHER, SELFPAY | PROVIDERS: Admitting Provider Student in an Organized Health Care Education/Training Program; Emergency Provider Student in an Organized Health Care Education/Training Program; PCP Internal Medicine; Visit Provider Student in an Organized Health Care Education/Training Program | DX: J10.1 Influenza due to other identified influenza virus with other respiratory manifestations (principal); D69.6 Thrombocytopenia, unspecified; I50.9 Heart failure, unspecified | CPT/HCPCS: 99222; 99239; 99499 ==